=== PATIENT | male | born 1965 | race Caucasian/White ===

== ENCOUNTER 2022-12-30 17:28 | Inpatient (IN) | payer OTHER ==
[2022-12-30 17:46] VITALS: BMI 23.8
[2022-12-30] MEDS ORDERED: POLYETHYLENE GLYCOL (HEALTHYLAX) 3350 17 GM PACKET PO PRN (19:03)
[2022-12-30] MEDS ORDERED: MAGNESIUM HYDROX 2400MG/30ML ORAL SUSPENSION 30 ML CUP PO PRN (19:03)
[2022-12-30] MEDS ORDERED: BENZONATATE 200 MG CAPSULE PO PRN (19:03)
[2022-12-30] MEDS ORDERED: IBUPROFEN 400 MG TABLET (FP) PO PRN (19:03)
[2022-12-30] MEDS ORDERED: DICYCLOMINE HCL 10 MG CAPSULE PO PRN (19:03)
[2022-12-30] MEDS ORDERED: guaiFENesin 600 MG TABLET.ER (FP) PO PRN (19:03)
[2022-12-30] MEDS ORDERED: BISMUTH SUBSALICYLATE 524 MG/30 ML PO PRN (19:03)
[2022-12-30] MEDS ORDERED: ONDANSETRON *ODT* 4 MG TABLET SL PRN (19:03)
[2022-12-30] MEDS ORDERED: LOPERAMIDE HCL 2 MG CAPSULE PO PRN (19:03)
[2022-12-30] MEDS ORDERED: P-EPHED 60MG/TRIPROLIDI 2.5MG TABLET PO PRN (19:03)
[2022-12-30] MEDS ORDERED: ACETAMINOPHEN 325 MG TABLET (FP) PO PRN (19:03)
[2022-12-30] MEDS ORDERED: MAG HYDROX/AL HYDROX/SIMETH 30 ML UNIT-DOSE CUP PO PRN (19:03)
[2022-12-30] MEDS ORDERED: BENZOCAINE/MENTHOL (CHLORASEPTIC ) LOZENGE MM PRN (19:03)
[2022-12-30] MEDS ORDERED: IBUPROFEN 600 MG TABLET (FP) PO PRN (19:03)
[2022-12-30] MEDS ORDERED: NICOTINE POLACRILEX 2 MG GUM BUC PRN (19:28)
[2022-12-30] MEDS: ATORVASTATIN CA 10 MG TABLET (FP) PO SCH (22:08)
[2022-12-30] MEDS: THIAMINE HCL 100 MG TABLET (FP) PO SCH (22:08)
[2022-12-30] MEDS: metFORMIN HCL 500 MG TABLET (FP) PO SCH (22:08)
[2022-12-30] MEDS: MELATONIN 5 MG TABLETS PO SCH (22:09)
[2022-12-30] MEDS: DOCUSATE SODIUM 100 MG CAPSULE (FP) PO SCH (22:09)
[2022-12-30] MEDS: INSULIN SLIDING SCALE (NOVOLOG) 1 VIAL SQ SCH (22:30)
[2022-12-31] MEDS: metFORMIN HCL 500 MG TABLET (FP) PO SCH ×2 (06:05→22:35)
[2022-12-31] MEDS: INSULIN SLIDING SCALE (NOVOLOG) 1 VIAL SQ SCH ×4 (06:05→22:48)
[2022-12-31] MEDS ORDERED: PRENATAL VITAMINS W/ FOLIC ACID TABLET (FP) PO SCH (10:00)
[2022-12-31] MEDS: DOCUSATE SODIUM 100 MG CAPSULE (FP) PO SCH ×2 (10:19→22:35)
[2022-12-31 10:36] LABS: CHLORIDE 112 mmol/L (98-107); POTASSIUM 4.2 mmol/L (3.5-5.1); SODIUM 144 mmol/L (136-145)
[2022-12-31 10:38] LABS: HEMATOCRIT 33.9 % (35.4-49); HEMOGLOBIN 11.7 GM/dL (11.7-16.9); MCH 27.3 pg (25.7-33.7); MCHC 34.3 g/dl (32.0-35.9); MEAN CELL VOLUME 79.6 fl (80-96); MEAN PLT VOLUME 7.1 fl (7.5-11.1); PLATELET COUNT 261 10^3/uL (134-434); RBC 4.26 M/mm3 (4.00-5.60); WHITE BLOOD COUNT 8.2 K/mm3 (4.0-10.0)
[2022-12-31 10:40] LABS: GLUCOSE,RANDOM 112 mg/dL (74-106)
[2022-12-31 10:44] LABS: ALBUMIN 3.1 g/dl (3.4-5.0); ANION GAP 7 MMOL/L (8-16); BLOOD UREA NITROGEN 10.5 mg/dL (7-18); CALCIUM 8.8 mg/dL (8.5-10.1); CO2 25 mmol/L (21-32)
[2022-12-31 10:46] LABS: CREATININE 0.6 mg/dL (0.55-1.3); SGOT/AST 8 U/L (15-37); SGPT/ALT 15 U/L (13-61)
[2022-12-31 10:48] LABS: BILIRUBIN,TOTAL < 0.1 mg/dL (0.2-1); TOT PROT 5.6 g/dl (6.4-8.2)
[2022-12-31 10:49] LABS: ALK PHOS 67 U/L (45-117)
[2022-12-31] MEDS ORDERED: NICOTINE 21 MG/24 HOURS TOPICAL PATCH TD PRN (12:17)
[2022-12-31 21:50] VITALS: RESP 18
[2022-12-31] MEDS ORDERED: CLOZAPINE 200 MG PO SCH (22:00)
[2022-12-31] MEDS ORDERED: QUEtiapine FUMARATE 50 MG TABLET PO SCH (22:00)
[2022-12-31] MEDS ORDERED: traZODone HCL 50 MG TABLET (FP) PO SCH (22:00)
[2022-12-31] MEDS ORDERED: cloZAPine 100 MG TABLET PO SCH (22:00)
[2022-12-31] MEDS: MELATONIN 5 MG TABLETS PO SCH (22:35)
[2022-12-31] MEDS: THIAMINE HCL 100 MG TABLET (FP) PO SCH (22:35)
[2022-12-31] MEDS: ATORVASTATIN CA 10 MG TABLET (FP) PO SCH (22:35)
[2023-01-01] MEDS: metFORMIN HCL 500 MG TABLET (FP) PO SCH (06:02)
[2023-01-01] MEDS: INSULIN SLIDING SCALE (NOVOLOG) 1 VIAL SQ SCH (06:03)
[2023-01-01 09:30] VITALS: BP 136/79; PULSE 113; TEMP 98.1
== END 2023-01-01 09:21 | disposition home or self-care (01) | DRG 775 ==
LOC: YASAS 17:28 → Y6N 20:06
PROVIDERS: ADMIT Allergy & Immunology; ATTEND Surgery
PROC: HZ2ZZZZ Detoxification Services for Substance Abuse Treatment (ICD-10-PCS; principal; 2022-12-30)
DX: F10.230 Alcohol dependence with withdrawal, uncomplicated (principal); F10.282 Alcohol dependence with alcohol-induced sleep disorder; F12.20 Cannabis dependence, uncomplicated; F17.213 Nicotine dependence, cigarettes, with withdrawal; F25.1 Schizoaffective disorder, depressive type; I10 Essential (primary) hypertension; E78.5 Hyperlipidemia, unspecified; E11.9 Type 2 diabetes mellitus without complications; Z62.810 Personal history of physical and sexual abuse in childhood; Z79.4 Long term (current) use of insulin; Z56.0 Unemployment, unspecified
CPT/HCPCS: 36415; 80053; 82962; 85025; 86780; 87635